=== PATIENT | male | born 1975 | race American Indian/Alaskan Native ===

== ENCOUNTER 2020-12-31 00:01 | Emergency (ER) | payer SELFPAY ==
[2020-12-31] MEDS ORDERED: ACETAMINOPHEN 500 MG TAB PO ONE (02:27)
[2020-12-31] MEDS ORDERED: IBUPROFEN 600 MG TAB PO ONE (02:27)
--- NOTE | 2020-12-31 03:30 | Emergency Department Report ---
ED Back Pain/Injury HPI - General Chief Complaint: Back Pain/Injury Stated Complaint: BACK PAIN TROUBLE BREATHING Source: patient Limitations: No Limitations - History of Present Illness Initial Comments: Patient is a 45-year-old -[place] male with no past medical history who presents to the ED with complaint of acute onset persistent severe right shoulder, mid posterior thoracic and low back pain for the last 2 days after heavy lifting at work. Patient states that the pain in his mid posterior thoracic area radiates to his anterior chest wall, worse with deep inhalation. Patient also states that the pain is worse with any movement or any active range of motion. Patient denies fall, traumatic injury, dizziness, syncope, headache, neck pain, shortness of breath, abdominal pain, nausea and vomiting, loss of consciousness, hemoptysis, numbness and tingling or weakness of upper and lower extremities bilaterally, urinary or bowel incontinence and saddle paresthesia. MD Complaint: back pain (Mid posterior thoracic and low back pain), back injury (Back pain after heavy lifting), other (Right shoulder pain after heavy lifting) -: Sudden, days(s) (2) Similar Symptoms Previously: No Place: work Radiation: other (chest pain) Severity: severe Severity scale (0 -10): 8 Quality: sharp, aching Consistency: constant Improves With: none Worsens With: movement, walking, deep breaths/cough Context: other (heavy lifting) Associated Symptoms: denies other symptoms, chest pain (pleuritic). denies: confusion, weakness, numbness, difficulty walking, cough, difficulty urinating, diaphoresis, incontinence, fever/chills, constipation, abdominal pain, loss of appetite, nausea/vomiting, rash, seizure, shortness of breath, syncope - Related Data Previous Rx's Medication Instructions Recorded Last Taken Type Baclofen 20 mg PO Q12H PRN #30 tablet 12/31/20 Unknown Rx Ibuprofen [Motrin] 800 mg PO Q8HR PRN #30 tablet 12/31/20 Unknown Rx traMADoL [Ultram] 50 mg PO Q6HR PRN #12 tablet 12/31/20 Unknown Rx Allergies Allergy/AdvReac Type Severity Reaction Status Date / Time No Known Allergies Allergy Unverified 12/31/20 01:49 ED Review of Systems ROS: Stated complaint: BACK PAIN TROUBLE BREATHING Other details as noted in HPI Constitutional: denies: chills, fever Eyes: denies: eye pain, eye discharge, vision change ENT: denies: ear pain, throat pain Respiratory: denies: cough, shortness of breath, wheezing Cardiovascular: chest pain (pleuritic chest). denies: palpitations Endocrine: no symptoms reported Gastrointestinal: denies: abdominal pain, nausea, vomiting, diarrhea Genitourinary: denies: urgency, dysuria Musculoskeletal: back pain (mid posterior thoracic and lower back pain), arthralgia (right shoulder pain), other (right shoulder pain). denies: joint swelling Skin: denies: rash, lesions Neurological: denies: headache, weakness, paresthesias Psychiatric: denies: anxiety, depression Hematological/Lymphatic: denies: easy bleeding, easy bruising ED Past Medical Hx - Past Medical History Previous Medical History?: No - Surgical History Past Surgical History?: Yes Additional Surgical History: left eye - Medications Home Medications: Home Medications Medication Instructions Recorded Confirmed Last Taken Type Baclofen 20 mg PO Q12H PRN #30 tablet 12/31/20 Unknown Rx Ibuprofen [Motrin] 800 mg PO Q8HR PRN #30 tablet 12/31/20 Unknown Rx traMADoL [Ultram] 50 mg PO Q6HR PRN #12 tablet 12/31/20 Unknown Rx ED Physical Exam - General Limitations: No Limitations General appearance: alert, in no apparent distress - Head Head exam: Present: atraumatic, normocephalic, normal inspection - Eye Eye exam: Present: normal appearance, PERRL, EOMI Pupils: Present: normal accommodation - ENT ENT exam: Present: normal exam, normal orophraynx, mucous membranes moist, TM's normal bilaterally, normal external ear exam - Neck Neck exam: Present: normal inspection, full ROM. Absent: tenderness - Respiratory Respiratory exam: Present: normal lung sounds bilaterally, chest wall tenderness (palpable diffuse chest pain). Absent: respiratory distress, wheezes, rales, rhonchi, accessory muscle use, decreased breath sounds, prolonged expiratory - Cardiovascular Cardiovascular Exam: Present: regular rate, normal rhythm, normal heart sounds. Absent: systolic murmur, diastolic murmur, rubs, gallop - GI/Abdominal GI/Abdominal exam: Present: soft, normal bowel sounds. Absent: tenderness, guarding, rebound, hyperactive bowel sounds, hypoactive bowel sounds, organomegaly - Extremities Exam Extremities exam: Present: normal inspection, tenderness (Palpable right shoulder tenderness with limited ROM due to pain), normal capillary refill. Absent: full ROM (limited ROM of right shoulder due to pain), pedal edema, joint swelling, calf tenderness - Back Exam Back exam: Present: normal inspection, full ROM, tenderness (Palpable diffuse mid posterior thoracic and lumbosacral paraspinal musculoskeletal tenderness), muscle spasm, paraspinal tenderness, other (No midline tenderness). Absent: CVA tenderness (R), CVA tenderness (L), vertebral tenderness - Neurological Exam Neurological exam: Present: alert, oriented X3, CN II-XII intact, normal gait, reflexes normal - Psychiatric Psychiatric exam: Present: normal affect, normal mood - Skin Skin exam: Present: warm, dry, intact, normal color. Absent: rash ED Medical Decision Making - Radiology Data Radiology results: report reviewed, image reviewed The L-spine x-ray showed no acute fractures and subluxations. The T-spine also showed no acute fractures and subluxations. The right shoulder x-ray showed no acute fractures and subluxations. - Medical Decision Making This is a 45-year-old -[place] male with no past medical history who presents to the ED with complaint of acute onset persistent severe right shoulder, mid posterior thoracic and low back pain for the last 2 days after heavy lifting at work. Patient states that the pain in his mid posterior thoracic area radiates to his anterior chest wall, worse with deep inhalation. Patient also states that the pain is worse with any movement or any active range of motion. In the ED, patient is alert and oriented x3 and is not in any distress. Patient was treated for pain in the ED and right shoulder x-ray showed no acute fractures and subluxations. The T-spine x-ray also showed no acute fractures or subluxations. The L-spine x-ray also showed no acute fractures or subluxations of the lumbar spine or vertebrae. On reevaluation, patient's pain is well controlled medications. Patient will discharge home on pain medications and muscle relaxants and was advised to follow-up with his primary care physician in 5 to 7 days for reevaluation. Patient is advised return to the ED immediately if symptoms get worse. - Differential Diagnosis Muscle spasm; muscle strain; costochondritis; shoulder sprain Critical care attestation.: If time is entered above; I have spent that time in minutes in the direct care of this critically ill patient, excluding procedure time. ED Disposition Clinical Impression: Spasm of muscle of lower back, Strain of muscle and tendon of back wall of thorax, initial encounter, Acute costochondritis, Muscle strain of anterior chest wall Sprain of right shoulder Qualifiers: Encounter type: initial encounter Shoulder sprain type: unspecified sprain Q ualified Code(s): S43.401A - Unspecified sprain of right shoulder joint, initial encounter Disposition: HOME / SELF CARE / HOMELESS Is pt being admited?: No Does the pt Need Aspirin: No Condition: Stable Instructions: Muscle Cramps and Spasms, [id number], Shoulder Sprain, Back Injury Prevention, [id number], Muscle Strain, [id number] Additional Instructions: The L-spine x-ray showed no acute fractures or subluxations. The right shoulder x-ray also showed no acute fractures and subluxations. The T-spine x-ray also showed no acute fractures and subluxations. Your symptoms are likely due to muscle strain and muscle spasm of your back and your shoulder. Therefore take pain medications with muscle relaxants as needed for pain, drink plenty of fluids and follow-up with your primary care physician in 5 to 7 days for re evaluation. Return to the ED immediately if symptoms get worse. Prescriptions: Baclofen 20 mg PO Q12H PRN #30 tablet PRN Reason: Muscle Spasm Ibuprofen [Motrin] 800 mg PO Q8HR PRN #30 tablet PRN Reason: Pain , Severe (7-10) traMADoL [Ultram] 50 mg PO Q6HR PRN #12 tablet PRN Reason: Pain Referrals: [facility] [Provider Group] - 3-5 Days Forms: Work/School Release Form(ED) Time of Disposition: 03:45 Print Language: CONGOLESE
--- NOTE | 2020-12-31 03:36 | XRay Report ---
Lumbar spine 3 views INDICATION: Low back pain after injury IMPRESSION: Mild multilevel discogenic and facet arthropathy particularly at L4-L5 and L5-S1 with the re is mild bilateral neural foraminal stenosis. No fracture or subluxation. Signer Name: Flash Maurer MD Signed: 12/31/2020 3:32 AM Workstation Name: [id number]
--- NOTE | 2020-12-31 03:37 | XRay Report ---
Right shoulder 3 views INDICATION: Right shoulder pain. IMPRESSION: No fracture or subluxation identified. Mild degenerative change of the AC joint. Signer Name: Flash Maurer MD Signed: 12/31/2020 3:33 AM Workstation Name: [id number]
--- NOTE | 2020-12-31 03:37 | XRay Report ---
Thoracic spine 3 views INDICATION: Back pain IMPRESSION: Multilevel discogenic degenerative change present throughout much of the thoracic spine. Signer Name: Flash Maurer MD Signed: 12/31/2020 3:32 AM Workstation Name: [id number]
[2020-12-31 06:54] VITALS: BP 124/69
--- NOTE | 2020-12-31 10:30 | Electrocardiograph Report ---
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
== END 2020-12-31 06:54 | disposition home or self-care (01) ==
LOC: ED 00:01
DX: S43.401A Unspecified sprain of right shoulder joint, initial encounter (principal); S29.012A Strain of muscle and tendon of back wall of thorax, initial encounter; M62.830 Muscle spasm of back; M94.0 Chondrocostal junction syndrome [Tietze]; Z79.899 Other long term (current) drug therapy; Z98.890 Other specified postprocedural states; X58.XXXA Exposure to other specified factors, initial encounter; Y93.89 Activity, other specified; Y92.89 Other specified places as the place of occurrence of the external cause; Y99.0 Civilian activity done for income or pay
CPT/HCPCS: 72070; 72100; 93005

== ENCOUNTER 2021-03-10 05:21 | Emergency (ER) | payer SELFPAY ==
[2021-03-10] MEDS ORDERED: ONDANSETRON 4 MG/2 ML INJ IV ONE (05:30)
[2021-03-10] MEDS ORDERED: MORPHINE 4 MG/1 ML INJ IV ONE (05:30)
[2021-03-10] MEDS ORDERED: SODIUM CHLORIDE 0.9% 1000 ML 1,000 ML IV ONE (05:31)
--- NOTE | 2021-03-10 05:33 | Event Note ---
ED Screening Note Date of service: 03/10/21 Time: 05:32 ED Screening Note: Patient is a 45-year-old -[place]od[place] male with no past medical history presents to the ED with complaint of acute onset persistent severe bilateral flank pain for the last 4 days. Patient states that the pain has been persistent, constant and worse especially in the last 8 hours such that he has not been able to sleep. Patient denies dysuria, hematuria, testicular pain, urinary frequency and urgency, penile discharge, nausea, vomiting, chest pain, shortness of breath, diarrhea, fever and chills, heavy lifting, fall, numbness and tingling or weakness of lower extremities bilaterally. This initial assessment/diagnostic orders/clinical plan/treatment(s) is/are subject to change based on patients health status, clinical progression and re- assessment by fellow clinical providers in the ED. Further treatment and workup at subsequent clinical providers discretion. Patient/guardian urged not to elope from the ED as their condition may be serious if not clinically assessed and managed. Initial orders include: CBC, CMP, UA, lipase, CT abdomen pelvis with contrast
[2021-03-10 06:01] LABS: Basophils % (Auto) 0.7 % (0.0-1.8); Eosinophils # (Auto) 0.2 K/mm3 (0.0-0.4); Eosinophils % (Auto) 3.3 % (0.0-4.3); Hematocrit 38.4 % (35.5-45.6); Hemoglobin 12.3 gm/dl (11.8-15.2); Lymphocytes # (Auto) 1.5 K/mm3 (1.2-5.4); Mean Corpuscular HGB Conc 32 % (32-34); Mean Corpuscular Volume 81 fl (84-94); Monocytes # (Auto) 0.9 K/mm3 (0.0-0.8); Monocytes % (Auto) 12.7 % (0.0-7.3); Platelet Count 266 K/mm3 (140-440); Red Blood Count 4.75 M/mm3 (3.65-5.03); Red Cell Distribution Width 14.3 % (13.2-15.2)
--- NOTE | 2021-03-10 06:07 | Emergency Department Report ---
ED General Adult HPI - General Chief complaint: Abdominal Pain Stated complaint: Bilateral flank/lateral thoracic pain PUI?: No Time Seen by Provider: 03/10/21 06:06 Source: patient, RN notes reviewed, old records reviewed Mode of arrival: Ambulatory Limitations: Physical Limitation - History of Present Illness Initial comments: The patient was evaluated in the emergency department for symptoms described in the history of present illness. He/she was evaluated in the context of the global COVID-19 pandemic, which necessitated consideration that the patient might be at risk for infection with the virus that causes COVID-19. Institutional protocols and algorithms that pertain to the evaluation of patients at risk for COVID-19 are in a state of rapid change based on information released by regulatory bodies including the CDC and federal and state organizations. These policies and algorithms were followed during the leoncio salvador's care in the emergency department. Please note that these policies, procedures and recommendations changed on a rapid basis. The patient is a 45-year-old gentleman. He is not known to myself previously. He is right-hand dominant. The patient works in a [employer]. The patient presents to the ER today with a complaint of nontraumatic bilateral right upper quadrant left upper quadrant abdominal pain, nontraumatic lateral/inferior thoracic pain. The pain has been present for a few days. Does not radiate anywhere. It is sharp. It increases with palpation and range of motion. It decreases with rest and with certain position. The patient denies headache, neck pain, chest pain, vomiting, diaphoresis, exertional shortness of breath, leg pain, leg swelling, extremity weakness/numbness, travel, surgery, immobilization, DVT and pulmonary embolism risk factors. He took Tylenol at home which did not improve his pain -: Gradual, days(s) Location: abdomen, left, right Severity scale (0 -10): 9 Consistency: constant Improves with: rest Worsens with: movement - Related Data Previous Rx's Medication Instructions Recorded Last Taken Type Ibuprofen [Motrin] 800 mg PO Q8HR PRN #30 tablet 12/31/20 Unknown Rx Acetaminophen [Non-Aspirin Extra 650 mg PO Q6HR PRN #30 tablet 03/10/21 Unknown Rx Strength] Baclofen 20 mg PO Q12H PRN #30 tablet 03/10/21 Unknown Rx Ibuprofen [Motrin] 600 mg PO Q8H PRN #30 tablet 03/10/21 Unknown Rx Allergies Allergy/AdvReac Type Severity Reaction Status Date / Time No Known Allergies Allergy Unverified 12/31/20 01:49 ED Review of Systems ROS: Stated complaint: SOB/SEVERE BACK AND SIDE PAIN Other details as noted in HPI Constitutional: denies: fever (Denies loss of taste and smell) Eyes: denies: eye discharge ENT: denies: epistaxis Respiratory: denies: cough, shortness of breath Cardiovascular: denies: chest pain Gastrointestinal: abdominal pain. denies: nausea, vomiting Genitourinary: denies: dysuria Musculoskeletal: back pain Neurological: denies: weakness Psychiatric: anxiety Hematological/Lymphatic: denies: easy bleeding ED Past Medical Hx - Past Medical History Previous Medical History?: No - Surgical History Past Surgical History?: No Additional Surgical History: left eye - Medications Home Medications: Home Medications Medication Instructions Recorded Confirmed Last Taken Type Ibuprofen [Motrin] 800 mg PO Q8HR PRN #30 tablet 12/31/20 Unknown Rx Acetaminophen [Non-Aspirin Extra 650 mg PO Q6HR PRN #30 tablet 03/10/21 Unknown Rx Strength] Baclofen 20 mg PO Q12H PRN #30 tablet 03/10/21 Unknown Rx Ibuprofen [Motrin] 600 mg PO Q8H PRN #30 tablet 03/10/21 Unknown Rx ED Physical Exam - General Limitations: No Limitations General appearance: alert, anxious, in distress - Head Head exam: Present: atraumatic, normocephalic - Eye Eye exam: Present: normal appearance, EOMI. Absent: nystagmus - ENT ENT exam: Present: normal exam, normal orophraynx, mucous membranes moist, normal external ear exam - Neck Neck exam: Present: normal inspection, full ROM. Absent: tenderness, meningismus - Respiratory Respiratory exam: Present: normal lung sounds bilaterally, chest wall tenderness. Absent: respiratory distress, wheezes, rales, rhonchi, stridor - Cardiovascular Cardiovascular Exam: Present: regular rate, normal rhythm, normal heart sounds. Absent: bradycardia, tachycardia, irregular rhythm, systolic murmur, diastolic murmur, rubs, gallop - GI/Abdominal GI/Abdominal exam: Present: soft, tenderness, other (There is bilateral upper quadrant muscular abdominal tenderness). Absent: distended, guarding, rebound, rigid, pulsatile mass - Rectal Rectal exam: Present: deferred - Extremities Exam Extremities exam: Present: normal inspection - Back Exam Back exam: Present: normal inspection, full ROM, muscle spasm. Absent: tenderness, CVA tenderness (R), CVA tenderness (L), vertebral tenderness - Neurological Exam Neurological exam: Present: alert, oriented X3, other (No facial droop. Tongue midline. Extraocular movements intact bilaterally. Facial sensation intact to light touch in V1, V2, V3 distribution bilaterally. 5 and a 5 strength in 4 extremities. Sensation intact to light touch in 4 extremities.). Absent: motor sensory deficit - Psychiatric Psychiatric exam: Present: anxious - Skin Skin exam: Present: warm, dry, intact, normal color. Absent: rash ED Course Vital Signs 03/10/21 03/10/21 03/10/21 03:54 04:00 05:26 Temperature 97.9 F Pulse Rate 82 Respiratory 20 Rate Blood Pressure 129/83 O2 Sat by Pulse 99 99 97 Oximetry 03/10/21 03/10/21 03/10/21 06:00 06:01 06:15 Temperature Pulse Rate Respiratory Rate Blood Pressure 132/88 O2 Sat by Pulse 96 97 97 Oximetry 03/10/21 03/10/21 03/10/21 06:31 07:01 07:31 Temperature Pulse Rate Respiratory Rate Blood Pressure 103/66 132/88 132/88 O2 Sat by Pulse 98 98 97 Oximetry 03/10/21 03/10/21 03/10/21 07:39 07:45 07:50 Temperature Pulse Rate Respiratory 20 20 Rate Blood Pressure 137/84 O2 Sat by Pulse 97 100 Oximetry 03/10/21 03/10/21 08:01 08:15 Temperature Pulse Rate Respiratory Rate Blood Pressure 144/97 137/84 O2 Sat by Pulse 98 98 Oximetry - Reevaluation(s) Reevaluation #1: 03/10/21 06:18 Differential diagnosis, including not limited to: Muscular sprain, strain, renal colic cholecystitis, pancreatitis, urinary tract infection/pyelonephritis assessment and plan: 45-year-old gentleman, who was afebrile, with reassuring vital signs, who is not currently tachycardic, tachypneic or hypoxic, who denies DVT and pulmonary embolism risk factors, who is low risk by Wells criteria for pulmonary embolism, PERC negative, with equal pulses in the upper and lower extremities, no pulsatile abdominal mass, unremarkable chest x-ray mediastinum (very unlikely to be aortic disease), with bilateral reproducible thoracic muscular wall pain, in the context of 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 Patient has presented to this hospital in the past for similar complaints. Obtain appropriate laboratory studies, urinalysis, EKG. Treat pain aggressively. Obtain CT scan abdomen pelvis to exclude surgical pathology. There is a negative Hurt sign. I think cholecystitis is very unlikely clinically. Reassess after initial data points. I discussed this plan of care with the patient. He is agreeable to the plan of care. 03/10/21 07:08 Patient reassessed. He feels improved. Reports 50% improvement in his symptoms. EKG unremarkable. Laboratory studies unremarkable. CT scan abdomen pelvis reviewed by myself. Do not appreciate any acute findings. Pending formal radiology interpretation. Urinalysis pending. We discussed with patient. He articulates understanding 03/10/21 08:50 Final reassessment. Urinalysis unremarkable. CT scan of the abdomen pelvis unremarkable. Patient reports marked improvement in symptoms. Discussed natural history of muscular sprain and strain. Patient articulated understa nding. Discharged with outpatient follow-up. Return precautions are reviewed. ED Medical Decision Making - Lab Data Result diagrams: 03/10/21 05:47 03/10/21 05:47 Vital Signs 03/10/21 05:26 Temperature 97.9 F Pulse Rate 82 Respiratory 20 Rate Blood Pressure 129/83 O2 Sat by Pulse 97 Oximetry Labs 03/10/21 05:47 WBC 7.1 RBC 4.75 Hgb 12.3 Hct 38.4 MCV 81 L MCH 26 L MCHC 32 RDW 14.3 Plt Count 266 Lymph % (Auto) 21.0 [place] % (Auto) 12.7 H Eos % (Auto) 3.3 Baso % (Auto) 0.7 Lymph # (Auto) 1.5 [place] # (Auto) 0.9 H Eos # (Auto) 0.2 Baso # (Auto) 0.0 Seg Neutrophils % 62.3 Seg Neutrophils # 4.4 - EKG Data -: EKG Interpreted by Ar EKG shows normal: sinus rhythm Rate: normal - EKG Data When compared to previous EKG there are: previous EKG unavailable 03/10/21 07:08 EKG interpreted at 06: 5 7 Sinus rhythm, rate 76 bpm. Normal axis. Normal P wave axis. Motion artifact V2. Otherwise, unremarkable EKG. Not a STEMI. No prior for comparison. - Radiology Data Radiology results: pending, report reviewed, image reviewed CHEST 1 VIEW INDICATION: bilateral flank pain. COMPARISON: None. FINDINGS: Support devices: None. Heart: Normal. Lungs/Pleura: There are low lung volumes with atelectatic changes in the bases. No pleural abnormality. IMPRESSION: 1. No acute findings. Signer Name: Jesus Rand MD Signed: 03/10/2021 5:13 AM Workstation Name: [email or web address] CT ABDOMEN AND PELVIS WITH IV CONTRAST INDICATION: Bilateral flank pains. COMPARISON: None available. TECHNIQUE: All CT scans at this facility use dose modulation, automated exposure control, iterative reconstruction or weight based dosing, when appropriate, to reduce radiation dose to as low as reasonably achievable. FINDINGS: Lung Bases: No significant abnormality. Skeletal System: No acute abnormality. ABDOMEN: Liver: No significant abnormality. Gallbladder: No significant abnormality. Bile Ducts: No significant abnormality. Adrenals: No significant abnormality. Right Kidney: No significant abnormality. Left Kidney: No significant abnormality. Pancreas: No significant abnormality. Spleen: No significant abnormality. Upper GI tract: No significant abnormality. Lymph Nodes: No significant adenopathy. Aorta: No significant abnormality. Additional Findings: No significant abnormality. PELVIS: Colon: No acute abnormality. Urinary Bladder and Distal Ureters: No significant abnormality. Appendix: No significant abnormality. Lymph Nodes: No significant adenopathy. Additional Findings: None. IMPRESSION: 1. No acute process in the abdomen or pelvis. Signer Name: Jesus Rand MD Signed: 03/10/2021 6:03 AM Workstation Name: [id number] Critical care attestation.: If time is entered above; I have spent that time in minutes in the direct care of this critically ill patient, excluding procedure time. ED Disposition Clinical Impression: Upper abdominal pain, Bilateral flank pain, Muscle spasm Disposition: 01 HOME / SELF CARE / HOMELESS Is pt being admited?: No Does the pt Need Aspirin: No Condition: Good Instructions: Muscle Cramps and Spasms, [id number] Additional Instructions: Do not take metformin medication for the next 2 days, if patient takes this medication. Rest, avoid heavy lifting and strenuous physical activities. Weightbearing as tolerated, and participate in physical activities as tolerated. Alternate ice packs and heat packs to the flank and for accessing it for physical pain. As we discussed, pain likely coming from the muscles and connective tissue in the thorax and lateral chest. This may take a few days to improve. Please take the prescribed pain medications as needed and directed. If patient has any residual baclofen, he may take this as well for physical pain . When taking baclofen, do not drive, consume alcohol, or make important decisions. When taking ibuprofen, make certain to eat food, as this medication can upset stomach. Please follow-up with your primary care doctor within the next 5 to 7 days for repeat checkup/evaluation. Please return to the emergency room right away with new pain, worsened pain, migration of pain, projectile vomiting, change in mental status, confusion, inability to tolerate liquid feeds, new, worsened or different symptoms not present on the initial emergency room evaluation Prescriptions: Baclofen 20 mg PO Q12H PRN #30 tablet PRN Reason: Muscle Spasm Ibuprofen [Motrin] 600 mg PO Q8H PRN #30 tablet PRN Reason: Pain Acetaminophen [Non-Aspirin Extra Strength] 650 mg PO Q6HR PRN #30 tablet PRN Reason: Pain , Severe (7-10) Referrals: [facility] [Provider Group] - 3-5 Days Forms: Work/School Release Form(ED)
[2021-03-10] MEDS ORDERED: HYDROmorphone 1 MG/1 ML INJ IV ONE (06:14)
--- NOTE | 2021-03-10 06:17 | XRay Report ---
CHEST 1 VIEW INDICATION: bilateral flank pain. COMPARISON: None. FINDINGS: Support devices: None. Heart: Normal. Lungs/Pleura: There are low lung volumes with atelectatic changes in the bases. No pleural abnormalit y. IMPRESSION: 1. No acute findings. Signer Name: Jesus Rand MD Signed: 03/10/2021 6:13 AM Workstation Name: [id number]
[2021-03-10 06:24] LABS: Alanine Aminotransferase 17 units/L (7-56); Albumin 3.9 g/dL (3.9-5); BUN/Creatinine Ratio 15; Blood Urea Nitrogen 16 mg/dL (9-20); Calcium 9.2 mg/dL (8.4-10.2); Hemolysis Index 3
--- NOTE | 2021-03-10 07:07 | Cat Scan Report ---
CT ABDOMEN AND PELVIS WITH IV CONTRAST INDICATION: Bilateral flank pains. COMPARISON: None available. TECHNIQUE: All CT scans at this facility use dose modulation, automated exposure control, iterative reconstructi on or weight based dosing, when appropriate, to reduce radiation dose to as low as reasonably achieva ble. FINDINGS: Lung Bases: No significant abnormality. Skeletal System: No acute abnormality. ABDOMEN: Liver: No significant abnormality. Gallbladder: No significant abnormality. Bile Ducts: No significant abnormality. Adrenals: No significant abnormality. Right Kidney: No significant abnormality. Left Kidney: No significant abnormality. Pancreas: No significant abnormality. Spleen: No significant abnormality. Upper GI tract: No significant abnormality. Lymph Nodes: No significant adenopathy. Aorta: No significant abnormality. Additional Findings: No significant abnormality. PELVIS: Colon: No acute abnormality. Urinary Bladder and Distal Ureters: No significant abnormality. Appendix: No significant abnormality. Lymph Nodes: No significant adenopathy. Additional Findings: None. IMPRESSION: 1. No acute process in the abdomen or pelvis. Signer Name: Jesus Rand MD Signed: 03/10/2021 7:03 AM Workstation Name: [id number]
[2021-03-10] MEDS ORDERED: KETOROLAC 30 MG/1 ML INJ IV ONE (07:14)
[2021-03-10 08:44] LABS: Bilirubin,Urine NEG (Negative); Blood,Urine NEG (Negative); Color,Urine Yellow (Yellow); Mucus,Urine FEW /HPF; Protein,Urine <15 mg/dL mg/dL (Negative)
[2021-03-10 08:56] VITALS: BP 131/73
--- NOTE | 2021-03-10 09:17 | Electrocardiograph Report ---
[facility] Test Date: 2021-03-10 Test Time: 06:56:10 Pat Name: STAS RUBIO Department: Room: Gender: M Organ Builder: MARYJANE : 1975 Requested By: BLAZE SALAZAR Order Number: [id number] Reading MD: Talon Anand Measurements Intervals [place] Rate: 76 P: 49 CA: 179 QRS: 17 QRSD: 91 T: 31 QT: 380 QTc: 428 Interpretive Statements Sinus rhythm Compared to ECG 12/31/2020 02:18:29 Sinus tachycardia no longer present Electronically Signed On 03-10-2021 9:17:14 EDT by Talon Anand
== END 2021-03-10 09:10 | disposition home or self-care (01) ==
LOC: ED 05:21
DX: M62.838 Other muscle spasm (principal); R10.12 Left upper quadrant pain; R10.11 Right upper quadrant pain; Z79.899 Other long term (current) drug therapy
CPT/HCPCS: 36415; 71045; 74177; 80053; 81001; 83690; 85025; 93005; 96361; 96374; 96375; 99284; J1170; J1885; J2270; J2405; J7030; Q9967